=== PATIENT | male | born 1965 | race Native Hawaiian/Other Pacific Islander ===

== ENCOUNTER 2019-07-12 07:49 | Outpatient (CLI) | payer OTHER ==
[2019-07-12 08:12] LABS: PLATELET COUNT 264 K/uL (142-355)
[2019-07-12 08:51] LABS: POTASSIUM 3.8 mmol/L (3.6-5.2)
== END 2019-07-12 19:32 | disposition home or self-care (01) ==
LOC: LABW 07:49
PROVIDERS: Internal Medicine
DX: Z00.00 Encounter for general adult medical examination without abnormal findings (principal); R03.0 Elevated blood-pressure reading, without diagnosis of hypertension; E78.00 Pure hypercholesterolemia, unspecified
CPT/HCPCS: 36415; 80053; 80061; 81000; 84153; 84443; 85027